=== PATIENT | female | born 1990 | race Caucasian/White ===

== ENCOUNTER 2023-07-09 15:47 | Outpatient (REF) | payer BC, SELFPAY | END 2023-07-09 15:48 | disposition home or self-care (01) | LOC: LBN 15:47 | PROVIDERS: Visit Provider Physician Assistant | DX: H01.9 Unspecified inflammation of eyelid (principal) | CPT/HCPCS: 87077; 87070; 87186 ==

== ENCOUNTER 2024-12-29 10:23 | Emergency (ER) | payer BC, SELFPAY ==
--- NOTE | 2024-12-29 10:30 | DI.CT_ITS ---
Exam(s) CT FACIAL W EXAM: CT FACIAL W CLINICAL HISTORY: Right nare lesion, facial swelling. TECHNIQUE: Imaging Protocol: Axial computed tomography images with coronal and sagittal reformatted images were created and reviewed CONTRAST MATERIAL: Intravenous: Omnipaque 350 Contrast volume:structured data in ml mL COMPARISON: No exams were available for comparison FINDINGS: Facial Bones: No definite fracture is noted in facial bones. Sinuses and Mastoids: Unremarkable. Globes, extraocular muscles, optic nerves and retrobulbar fat: Normal. Upper aerodigestive tract: Normal. Mandible and bilateral temporomandibular joints: Normal. Soft tissues: No soft tissue mass or focal fluid collection is seen to suggest an abscess. No skin t hickening or infiltration of the subcutaneous tissues in the right face. Enhancement: No abnormal enhancement. IMPRESSION: 1. No acute abnormality. No evidence of an abscess. 2. Findings were discussed with the Kyara Winston at 11:27 a.m. on 12/29/2024. RADIATION DOSE DELIVERED: 398.73mGy.cm Total DLP DATA REPOSITORY: All CT scans at this facility are submitted to the National Radiology Data Registry (NRDR) Dose Index Registry (DIR) with the [employer] (A[employer]). RADIATION OPTIMIZATION: All CT scans at this facility use at least one of these dose optimization te chniques: automated exposure control; mA and/or kV adjustment per patient size (includes targeted exa ms where dose is matched to clinical indication); or iterative reconstruction.
[2024-12-29 10:33] VITALS: BP 93/69; PULSE 71; RESP 16; TEMP 36.8; O2SAT 100
[2024-12-29 10:40] VITALS: BP 93/69; PULSE 71; RESP 16; TEMP 36.8; O2SAT 100
--- NOTE | 2024-12-29 10:41 | ED.GENADUL_ITS ---
Discharge Plan Disposition Patient Disposition: Home Condition: Stable Discharge Details Clinical Impression: Nostril infection Primary Care Provider: Unknown,Unknown ED Provider: Kyara Winston Home Meds and New Rx's Prescriptions: New levofloxacin 750 mg tablet 750 mg PO DAILY 7 Days Qty: 7 0RF Rx Instructions: Please take 1 tablet daily for the next 7 days No Action Mirena 21 mcg/24hr (up to 8 yrs) 52 mg intrauterine device 1 device intrauterine ONCE Rx Instructions: as a single dose buspirone 10 mg tablet 10 mg PO DAILY escitalopram oxalate 10 mg tablet 10 mg PO DAILY Discharge Instructions Instructions: Cellulitis (Skin Infection), Adult ED Additional Instructions: At this time the CT of your face is within normal limits. No evidence of abscess in your sinuses or sinusitis. Please apply bacitracin or similar antibiotic ointment to the inside of your right nare once a day. Take the antibiotics with yogurt or a probiotic as directed. You may apply ice to the side of your face to decrease the swelling. Please return to the ER for worsening swelling, fever chills or any concerns. You should feel better in approximately 3 to 5 days. Follow up with primary care provider in 3-5 days. Return to ED sooner if any worsening or concerns. You for allowing us to care for you today. Referrals: Primary Care Provider [Outside] - 1 week Discharge Data Discharge Date/Time-TO BE ENTERED AT DEPARTURE: 12/29/24 12:15 HPI General Mode of arrival: ambulatory . Date/Time Provider Initiated Documentation: 12/29/24 10:39 . Limitations to Documentation: no limitations . Information obtained by: patient, RN/MD, RN notes reviewed and old records reviewed . HPI Narrative: 34-year-old female presents to the ER after being seen at [facility] this morning with a chief complaint of purulent nasal drainage for the last 2 days, noticed a lesion in her right nare proximately 5 days ago and then began with facial swelling under her eye and right cheek. She denies any throat pain, no ear pain. Speaking in full sentences. Denies any fever or chills. She does report a recent URI. She is allergic to penicillin and has not been on antibiotics in the last few months. Related Data Home Medications ?Medication ?Instructions ?Recorded ?Confirmed buspirone 10 mg tablet 10 mg PO DAILY 07/09/23 12/29/24 escitalopram oxalate 10 mg tablet 10 mg PO DAILY 07/09/23 12/29/24 levofloxacin 750 mg tablet 750 mg PO DAILY Cellulitis 7 days 12/29/24 #7 tabs levonorgestrel 21 mcg/24 hr (up to 1 device intrauterine ONCE 12/29/24 12/29/24 8 years) 52 mg intrauterine device (Mirena) Previous Rx's ?Medication ?Instructions ?Recorded levofloxacin 750 mg tablet 750 mg PO DAILY Cellulitis 7 days 12/29/24 #7 tabs Allergies Allergy/AdvReac Type Severity Reaction Status Date / Time Penicillins AdvReac Mild Skin Rash Verified 12/29/24 10:36 General Stated Complaint: FacialProb NOÉ: 3 Review of Systems Constitutional Constitutional: Reports as per HPI ENT Ears, Nose, Mouth, and Throat: Reports as per HPI, Reports facial pain, Reports nasal discharge, Reports nose pain, Reports sinus pain, Reports sinus pressure, Denies sore throat and Reports other (Facial swelling) Exam HENMT Ears: hearing grossly normal bilaterally, external ears normal and TM's normal bilaterally General nose exam: external nose normal and mucous membranes and turbinates abnormal boggy on the right, erythematous on the right and other (Tender swollen area of the right nasal septum, distally no visualized laceration but there is significant swelling) Face and sinus: edema on the right maxilla Face images: 2 1. Swelling 2. Edema and tenderness Mouth: oral mucosae normal, lip normal and oropharynx normal Course Vital Signs Vital signs: Vital Signs Temperature 36.8 C 12/29/24 10:33 Pulse 71 12/29/24 10:33 Respiratory Rate 16 12/29/24 10:33 Blood Pressure 93/69 L 12/29/24 10:33 Pulse Oximetry 100 12/29/24 10:33 Temperature 36.8 C 12/29/24 10:33 Temperature Source Oral 12/29/24 10:33 Pulse 71 12/29/24 10:33 Respiratory Rate 16 12/29/24 10:33 Blood Pressure 93/69 L 12/29/24 10:33 Blood Pressure Position Sitting 12/29/24 10:33 Pulse Oximetry 100 12/29/24 10:33 Oxygen Delivery Method Room Air 12/29/24 10:33 Oxygen Flow Rate 0 12/29/24 10:33 Pain Level 0 12/29/24 10:33 Medical Decision Making 34-year-old female presents to the ER after being seen at [facility] this morning with a chief complaint of purulent nasal drainage for the last 2 days, noticed a lesion in her right nare proximately 5 days ago and then began with facial swelling under her eye and right cheek. She denies any throat pain, no ear pain. Speaking in full sentences. Denies any fever or chills. She does report a recent URI. She is allergic to penicillin and has not been on antibiotics in the last few months. CBC CMP lactate ordered CT facial with IV contrast. Given 150 mg of levofloxacin IV piggyback. Labs are largely within normal limits, CT shows no evidence of abscess or sinusitis. No significant soft tissue swelling. Will send patient home with 7 days worth of levofloxacin daily and instructions to put bacitracin or similar antibiotic ointment inside the right nare daily. Patient verbalized understanding. Discussed to return if any worsening swelling, fever or concerns. This text was generated using [employer] dictation system, please disregard any oddities of phrase or misspellings. Lab Data Lab results reviewed: Yes I reviewed the patient's lab results. Labs: Laboratory Tests Range/Units 12/29/24 10:53 WBC (4.4-10.8) 10^3/uL 7.94 RBC (3.93-5.22) 10^6/uL 4.50 Hgb (11.2-15.7) g/dL 13.9 Hct (36.0-46.0) % 41.5 MCV (80-95) fL 92 MCH (27.0-33.0) pg 30.9 MCHC (32.0-36.0) % 33.5 RDW (11.7-14.6) % 12.7 Plt Count (130-400) 10^3/uL 267 MPV (8.0-11.0) fL 10.2 Immature Gran % % 0.3 Neutrophils % % 71.2 Lymphocytes % % 21.3 Monocytes % % 5.8 Eosinophils % % 0.8 Basophils % % 0.6 Nucleated RBC % (0.0-0.3) % 0.0 Absolute Neutrophils (1.2-6.7) 10^3/uL 5.66 Absolute Lymphocytes (1.2-3.4) 10^3/uL 1.69 Absolute Monocytes (0.1-0.8) 10^3/uL 0.46 Absolute Eosinophils (0.0-0.7) 10^3/uL 0.06 Absolute Basophils (0.0-0.2) 10^3/uL 0.05 VBG Lactate (<or=2.0) mmol/L 0.9 Sodium (136-145) mmol/L 140 Potassium (3.5-5.1) mmol/L 4.1 Chloride (98-107) mmol/L 103 Carbon Dioxide (21.0-32.0) mmol/L 25.4 Anion Gap (3-11) mmol/L 11.6 H BUN (7-18) mg/dL 11 Creatinine (0.55-1.02) mg/dL 0.8 Est GFR (CKD-EPI 2020) (mL/min/1.73m2) 99.09 Glucose (74-106) mg/dL 86 Calcium (8.5-10.1) mg/dL 9.5 Total Bilirubin (0.2-1.0) mg/dL 0.5 AST (15-37) U/L 25 ALT (14-59) U/L 39 Alkaline Phosphatase (46-116) U/L 79 Total Protein (6.4-8.2) g/dL 8.3 H Albumin (3.4-5.0) g/dL 4.2 Quality:SDOH Health Related Social Needs: 2 No Data to Display PFSH All Active Problems (Updated 12/29/24 @ 12:03 by Kyara Winston NP) Nostril infection (Acute) Social History Smoking risk assessment performed?: No
[2024-12-29 10:59] LABS: Abs Immature Grans 0.02 10^3/uL (0.0-0.06); Absolute Basophil Count 0.05 10^3/uL (0.0-0.2); Absolute Eosinophil Count 0.06 10^3/uL (0.0-0.7); Absolute Lymphocyte Count 1.69 10^3/uL (1.2-3.4); Absolute Monocyte Count 0.46 10^3/uL (0.1-0.8); Absolute Neutrophil Count 5.66 10^3/uL (1.2-6.7); Basophils % 0.6 %; Eosinophils % 0.8 %; HCT 41.5 % (36.0-46.0); HGB 13.9 g/dL (11.2-15.7); Immature Grans % 0.3 %; Lactate 0.9 mmol/L (<or=2.0); Lymphocytes % 21.3 %; MCH 30.9 pg (27.0-33.0); MCHC 33.5 % (32.0-36.0); MCV 92 fL (80-95); MPV 10.2 fL (8.0-11.0); Monocytes % 5.8 %; Neutrophils % 71.2 %; Platelet Count 267 10^3/uL (130-400); RDW 12.7 % (11.7-14.6); WBC 7.94 10^3/uL (4.4-10.8)
[2024-12-29] MEDS: Normal Saline - Diluent 50 ML VIAL IJ (11:04)
[2024-12-29] MEDS: Omnipaque 350 MG/ML 100 ML BTL IJ (11:05)
[2024-12-29 11:16] LABS: ALT 39 U/L (14-59); AST 25 U/L (15-37); Albumin 4.2 g/dL (3.4-5.0); Alkaline Phosphatase 79 U/L (46-116); Anion Gap 11.6 mmol/L (3-11); BUN 11 mg/dL (7-18); Bilirubin, Total 0.5 mg/dL (0.2-1.0); CO2 25.4 mmol/L (21.0-32.0); CREATININE 0.8 mg/dL (0.55-1.02); Calcium 9.5 mg/dL (8.5-10.1); Chloride 103 mmol/L (98-107); Estimated GFR 99.09 (mL/min/1.73m2); Glucose 86 mg/dL (74-106); Potassium 4.1 mmol/L (3.5-5.1); Sodium 140 mmol/L (136-145); Total Protein 8.3 g/dL (6.4-8.2)
[2024-12-29] MEDS: levoFLOXacin 750 MG/150 ML BAG 100 MG IVPB (11:30)
[2024-12-29 11:33] VITALS: BP 98/61; PULSE 72; RESP 16; O2SAT 100
--- NOTE | 2024-12-30 08:40 | ED.FU.B_ITS ---
Date of service: 12/30/24 Time of Service: 08:40 Follow Up Plan: Informed by medical staffing coordinator that nasal swab sent in from [facility] is positive for MRSA. Will contact patient and prescribe a different antibiotic that treats MRSA. Patient called and left . Rx for Doxycycline 100 mg PO BID x 10 days. 905: Patient called back, I did speak with her and inform her of the change in the antibiotic and to stop taking the levofloxacin. She verbalized understanding.
== END 2024-12-29 12:15 | disposition home or self-care (01) ==
PROVIDERS: Emergency Provider Registered Nurse Emergency
DX: J32.9 Chronic sinusitis, unspecified (principal); B95.62 Methicillin resistant Staphylococcus aureus infection as the cause of diseases classified elsewhere
CPT/HCPCS: 36415; 80053; 81025; 96365; 99285; 70487; 83605; 85025; 99284; J1956; J3490

== ENCOUNTER 2024-12-29 10:45 | Outpatient (REF) | payer BC, SELFPAY | END 2024-12-29 10:46 | disposition home or self-care (01) | LOC: LBN 10:45 | PROVIDERS: Visit Provider Physician Assistant | DX: T14.8XXA Other injury of unspecified body region, initial encounter (principal); L08.9 Local infection of the skin and subcutaneous tissue, unspecified | CPT/HCPCS: 87077; 87070; 87186; 87205 ==